=== PATIENT | female | born 1975 | race Caucasian/White ===

== ENCOUNTER → 2017-02-07 | Outpatient (CLI) | payer OTHER ==
--- NOTE | 2017-02-07 12:23 | REP ---
Clinical: Adnexal mass . Technique: Transabdominal pelvic ultrasound followed by transvaginal examination for better evaluation of the endometrium and adnexa with color Doppler evaluation of the ovaries. Findings: Bladder is relatively collapsed. Normal anteverted uterus measures 8.3 x 2.9 x 5.0 cm. The endometrial complex measures 6.7 mm with trace endocervical fluid. 7.2 x 3.8 x 2.9 mm endometrial polyp is suggested. Multiple Nabothian cysts are identified measuring up to 12 mm. Tubular/cystic changes in the pelvis (right greater than left) suggests marked hydrosalpinx and requires correlation as underlying cystic mass lesion cannot definitively be excluded. The right ovary measures 2.6 x 1.1 x 2.1 cm. Left ovary measures 4.0 x 2.5 x 2.2 cm and includes 2.0 cm dominant follicle. Impression: 1. Uterus demonstrates multiple Nabothian cysts up to 12 mm and 7.2 mm endometrial polyp. 2. Cystic/tubular structures in the adnexa likely representing advanced hydrosalpinx. Differential diagnosis includes cystic neoplasm. Correlation with contrast enhanced CT or MRI is recommended. Signed by Sonny Dia MD 02/07/2017 12:14 P
== END ==
LOC: M RAD 09:57
PROVIDERS: ATTEND Family Medicine
DX: N83.209 Unspecified ovarian cyst, unspecified side (principal)

== ENCOUNTER → 2017-02-14 | Outpatient (CLI) | payer OTHER ==
[2017-02-14 19:51] LABS: BASO % 0.4 % (0.0-1.0); EOS # 0.1 K/mm3 (0.0-0.50); EOS % 1.5 % (0.0-3.0); LARGE UNSTAINED CELL # 0.2 K/mm3 (0.0-0.4); LARGE UNSTAINED CELL % 2.5 % (0.0-4.0); LYMPH # 1.8 K/mm3 (1.5-4.5); MEAN CORPUSCULAR HEMOGLOBIN 31.4 pg (27.0-33.0); MEAN CORPUSCULAR HGB CONC 33.4 g/dl (32.0-36.5); MEAN CORPUSCULAR VOLUME 93.8 fl (80.0-96.0); MONO # 0.4 K/mm3 (0.0-0.8); MONO % 6.1 % (0.0-5.0); NEUTROPHILS # 3.9 K/mm3 (1.8-7.7); NEUTROPHILS % 62.6 % (36.0-66.0); PLATELET COUNT, AUTOMATED 173 k/mm3 (150-450); RED CELL DISTRIBUTION WIDTH 12.5 % (11.5-14.5); WHITE BLOOD COUNT 6.3 K/mm3 (4.0-10.0)
[2017-02-18 10:39] LABS: CARCINOEMBRYONIC ANTIGEN < 0.5 NG/ML (<2.5)
== END ==
LOC: M SMT 13:54
PROVIDERS: ATTEND Specialist
DX: N83.299 Other ovarian cyst, unspecified side (principal); N83.209 Unspecified ovarian cyst, unspecified side

== ENCOUNTER → 2018-03-22 | Outpatient (CLI) | payer OTHER | LOC: M RAD 11:06 | DX: D39.11 Neoplasm of uncertain behavior of right ovary (principal); N70.11 Chronic salpingitis; N88.8 Other specified noninflammatory disorders of cervix uteri; N83.8 Other noninflammatory disorders of ovary, fallopian tube and broad ligament | CPT/HCPCS: 76856 ==

== ENCOUNTER → 2018-10-31 | Outpatient (REF) | payer OTHER ==
[2018-10-31 14:18] LABS: BASO % 0.8 % (0.0-1.0); EOS # 0.2 10^3/uL (0.0-0.50); EOS % 4.2 % (0.0-3.0); HEMATOCRIT 40.5 % (36.0-47.0); HEMOGLOBIN 13.4 g/dl (12.0-15.5); LYMPH # 2.1 10^3/uL (1.5-4.5); LYMPH % 43.7 % (24.0-44.0); MEAN CORPUSCULAR HEMOGLOBIN 29.6 pg (27.0-33.0); MEAN CORPUSCULAR HGB CONC 33.1 g/dl (32.0-36.5); MEAN CORPUSCULAR VOLUME 89.4 fl (80.0-96.0); MONO # 1.2 10^3/uL (0.0-0.8); MONO % 25.6 % (0.0-5.0); NEUTROPHILS # 1.2 10^3/uL (1.8-7.7); PLATELET COUNT, AUTOMATED 188 10^3/uL (150-450); RED BLOOD COUNT 4.53 10^6/uL (4.00-5.40); WHITE BLOOD COUNT 4.8 10^3/uL (4.0-10.0)
== END ==
LOC: M LABDRAW1 13:08
PROVIDERS: ATTEND Nurse Practitioner
DX: C18.7 Malignant neoplasm of sigmoid colon (principal)